=== PATIENT | male | born 1985 | race Caucasian/White ===

== ENCOUNTER 2025-01-23 14:25 | Outpatient (AMB) | payer OTHER, SELFPAY ==
--- NOTE | 2025-01-23 14:27 | MHC.PC.OV ---
Vital Signs 01/23/25 14:34 Height 6 ft 1.43 in Weight 261 lb 6 oz BMI 34.1 BP 128/86 Blood Pressure Location Rt brachial Position Sitting Respiration 16 Pulse 98 Pulse Source Pulse Oximeter Pulse Oximetry (%) 95 Oxygen Delivery Method Room Air Intake Visit Reasons: est care Intake Note: New patient visit Paper Plate Machine Tender Required: No Allergies No Known Allergies Allergy (Verified 01/23/25 14:29) Medication List - Last Reconciled 01/23/25 by Mae Tobin PA-C [Fiber PO] multivitamin 1 tab PO DAILY omeprazole magnesium (Prilosec OTC) 20 mg PO DAILY Tobacco use date assessed: 01/23/25 Dental Screening Dental Screen Date: 01/23/25 Did you have a dental visit in the last 12 months?: Yes Did you have a dental problem in the last 6 months where you did not have access to dental care?: No Was dental information given to patient?: Patient has dentist HPI est care HPI Details Patient is a 39-year-old male who presents today to [facility] care. He has not seen a pcp recently. He states that he does have a past medical history of Suboxone use but discontinued it 5 months ago in his own. States that he tapered it down on his own. GI: He is following with [facility] for ongoing diarrhea x 3 a day x 3 months. No blood in stool. Booked 02/04/25 for colonoscopy. He states that this did start following the discontinuation of Suboxone. Psych: He states he is sleeping poorly. He is waking up throughout the night. This has been going on for 3-4 months. He has tried melatonin, otc sleep aids without improvement. He does snore. Neuro: He does get frequent headaches and blurry vision. He states that the blurry vision is only in the left eye and it has been going on for a couple years and has progressively worsened. He has not yet seen ophthalmology and states that he plans to schedule the appointment. He has been getting posterior headaches for the last couple of months as well. It seems like it is worse in the morning. It is almost every day. 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 1. Little interest or pleasure in doing things: not at all 2. Feeling down, depressed, or hopeless: not at all 3. Trouble falling or staying asleep, or sleeping too much: nearly every day 4. Feeling tired or having little energy: several days 5. Poor appetite or overeating: not at all 6. Feeling bad about yourself - or that you are a failure or have let yourself or your family down: not at all 7. Trouble concentrating on things, such as reading the newspaper or watching television: not at all 8. Moving or speaking so slowly that other people could have noticed. Or the opposite - being so fidgety or restless that you have been moving around a lot more than usual: not at all 9. Thoughts that you would be better off or of hurting yourself in some way: not at all Total score: 4 Source: Developed by Drs. Manny Peter, Delilah Diaz, Truman Song and colleagues, with an educational bryan from [employer]. Thrive Questionnaire I am a: Patient What is your living situation today?: I have a steady place to live Within the past 12 months, did the food you bought not last and you didn't have the money to get more?: Never true Within the past 12 months, did you worry whether your food would run out before you got money to buy more?: Never true Do you have trouble paying for medicines?: No Do you have trouble getting transportation to medical appointments?: No Do you have trouble paying your heating and electricity bill?: No Do you have trouble taking care of your child, family member or friend?: No Do you have trouble with day-to-day activities such as bathing, preparing meals, shopping, managing finances, etc.?: No Are you currently unemployed and looking for a job?: No Are you interested in more education?: No Please select the resources that you would like help with: None Currently or been in a relationship where the following occur: No concerns reported THRIVE Score: 0 AUDIT C Alcohol Use Questionnaire (AUDIT-C) 1. How often do you have a drink containing alcohol?: 2-3 times a week 2. How many drinks containing alcohol do you have on a typical day when you are drinking?: 1 or 2 3. How often do you have six or more drinks on one occasion?: Monthly Total Score: 5 AKIKO-7 AMB Questionnaire AKIKO-7 Feeling nervous, anxious, or on edge: 0 = Not at all Not being able to stop or control worryin = Not at all Worrying too much about different things: 0 = Not at all Trouble relaxin = Several days Being so restless that it is hard to sit still: 0 = Not at all Becoming easily annoyed or irritable: 0 = Not at all Feeling afraid as if something awful might happen: 0 = Not at all Total AKIKO-7 score (0-4 normal; 5-9 mild; 10-14 moderate; 15-21 severe): 1 Source: Developed by Drs. Manny Peter, Delilah Diaz, Truman Song and colleagues, with an educational bryan from [employer]. Physical exam (Primary Care) Vital Signs: Last Vital Signs Pulse 98 01/23/25 14:34 Resp 16 01/23/25 14:34 BP 128/86 01/23/25 14:34 Pulse Ox 95 01/23/25 14:34 Oxygen Delivery Method Room Air 01/23/25 14:34 BMI result Body Mass Index 34.1 Tobacco/Smoking Status: Tobacco use Status Tobacco use date assessed 01/23/25 01/23/25 14:40 Patient Tobacco Use Status Former Tobacco user 01/23/25 14:40 e-Cigarette/Vaping Use Never Used 01/23/25 14:40 PHQ-9: PHQ-9 Score PHQ-9: Total score 4 01/23/25 14:40 Currently or been in a relationship where the following occur: No concerns reported Const Orientation/consciousness: patient oriented x3 HENMT Ears: hearing grossly normal bilaterally Neck Thyroid: Thyroid normal Lymphatic: no lymphadenopathy noted Resp Auscultation: clear to auscultation bilaterally Cardio Rate: regular rate Rhythm: regular rhythm Heart sounds: S1 normal heart sound present and S2 normal heart sound present GI Inspection: Yes normal to inspection Palpation (GI): Soft to palpation and Other GI palpation findings present (nontender, no cva tenderness) Auscultation: normoactive bowel sounds Rectal Exam - Male: Yes deferred Skin General skin exam: no rashes or lesions noted Neuro General: patient oriented x3, gait normal, no focal motor deficits and CN's II-XI intact bilaterally Coding Level of Care Code New Pt Level 3 (56859) Complex EM visit Add On G2211 Diagnoses Insomnia G47.00 Diarrhea R19.7 Daily headache R51.9 Blurry vision, left eye H53.8 Encounter for imaging to screen for eye metal prior to magnetic resonance imaging (MRI) Z Assessment & Plan Assessment & Plan (1) Insomnia: Code(s): G47.00 - Insomnia, unspecified Category: Medical Plan: We will try trazodone. Sleep study ordered. Labs ordered (2) Diarrhea: Code(s): R19.7 - Diarrhea, unspecified Category: Medical Plan: Has colonoscopy scheduled.. Continue with fiber supplement. (3) Daily headache: Code(s): R51.9 - Headache, unspecified Category: Medical Plan: MRI ordered. 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 X-ray ordered. (4) Blurry vision, left eye: Code(s): H53.8 - Other visual disturbances Category: Medical Plan: As above. Advised to follow with Ophthalmology. (5) Encounter for imaging to screen for eye metal prior to magnetic resonance imaging (MRI): Code(s): Z. - Encounter for other specified special examinations Category: Medical Plan: X-ray ordered Orders: Orders Comprehensive Met. Panel Today G47.00 - Insomnia, unspecified, R19.7 - Diarrhea, unspecified, Z00.00 - Encounter for general adult medical examination without abnormal findings Complete Blood Count Auto Diff Today G47.00 - Insomnia, unspecified, R19.7 - Diarrhea, unspecified, Z00.00 - Encounter for general adult medical examination without abnormal findings Lipid Panel Today G47.00 - Insomnia, unspecified, R19.7 - Diarrhea, unspecified, Z00.00 - Encounter for general adult medical examination without abnormal findings Hemoglobin A1c Today G47.00 - Insomnia, unspecified, R19.7 - Diarrhea, unspecified, R73.01 - Impaired fasting glucose, Z00.00 - Encounter for general adult medical examination without abnormal findings XR orbit min 4V Today Z01.89 - Encounter for other specified special examinations RT home sleep study Today R06.81 - Apnea, not elsewhere classified TSH reflex Free T4 Today G47.00 - Insomnia, unspecified, R19.7 - Diarrhea, unspecified, Z00.00 - Encounter for general adult medical examination without abnormal findings UA CC w/rflx Micro + Cult Today G47.00 - Insomnia, unspecified, R19.7 - Diarrhea, unspecified, Z00.00 - Encounter for general adult medical examination without abnormal findings, Z13.220 - Encounter for screening for lipoid disorders MR head/brain wo con Today H53.8 - Other visual disturbances, R51.9 - Headache, unspecified Medications: New trazodone 50 mg PO BEDTIME 30 tabs 5RF
[2025-01-23 14:34] VITALS: BP 128/86; PULSE 98; RESP 16; O2SAT 95; BMI 34.1
== END 2025-01-23 15:04 | disposition home or self-care (01) ==
LOC: HO.HMCFM 14:26
PROVIDERS: PCP Physician Assistant; Visit Provider Physician Assistant
DX: G47.00 Insomnia, unspecified (principal); R19.7 Diarrhea, unspecified; R51.9 Headache, unspecified; H53.8 Other visual disturbances; Z01.89 Encounter for other specified special examinations

== ENCOUNTER → 2025-01-23 14:25 | Outpatient (BNVA) | payer OTHER, SELFPAY | PROVIDERS: PCP Physician Assistant; Visit Provider Physician Assistant | DX: Z13.89 Encounter for screening for other disorder (principal) ==

== ENCOUNTER 2025-01-25 07:47 | Outpatient (REF) | payer OTHER, SELFPAY ==
[2025-01-25 11:10] LABS: MANUAL DIFF FLAG NO
[2025-01-25 11:31] LABS: Basophils Percent Auto 0.4 % (0-2); Eosinophils Absolute Auto 0.2 X10*3/uL (0.0-0.4); Eosinophils Percent Auto 2.2 % (0-4); Hematocrit 46.8 % (42.0-52.0); Hemoglobin 15.6 g/dl (14.0-18.0); Imm Gran Abs Auto 0.03 X10*3/uL (0.00-0.03); Imm Gran Pct Auto 0.3 % (0.0-0.4); Lymphocytes Absolute Auto 2.4 X10*3/uL (1.2-4.9); Lymphocytes Percent Auto 25.6 % (20-40); Mean Corpuscular HGB Conc 33.3 g/dl (31.0-36.0); Mean Corpuscular Hemoglobin 29.1 pg (27.0-33.0); Mean Corpuscular Volume 87.2 fL (80.0-98.0); Mean Platelet Volume 9.1 fL (9.4-12.4); Monocytes Absolute Auto 0.8 X10*3/uL (0.1-1.2); Monocytes Percent Auto 8.5 % (2-11); Neutrophils Absolute Auto 5.8 x10*3/uL (2.0-8.3); Platelet Count 313 X10*3/uL (160-400); Red Blood Count 5.37 X10*6/uL (4.60-5.80); Red Cell Distribution Width 12.9 % (11.0-16.0); White Blood Count 9.3 X10*3/uL (4.8-10.8)
[2025-01-25 11:31] LABS: Estimated Average Glucose 105 mg/dL; Hemoglobin A1c % 5.3 % (<6.0)
[2025-01-25 11:43] LABS: Appearance Urine Clear; Color Urine Yellow; Glucose Urine UA Negative (Negative); Leukocyte Esterase Urine Negative (Negative); Nitrite Urine Negative (Negative); Specific Gravity - Urine >= 1.030 (1.005-1.025); Urine Blood Negative (Negative); Urine Ketones Negative (Negative); Urine Protein Trace mg/dL (Neg-Trace)
[2025-01-25 12:49] LABS: Alanine Aminotransferase 28 U/L (0-40); Albumin Level 4.7 g/dL (3.5-5.0); Alkaline Phosphatase 53 U/L (39-117); Anion Gap 11 (12-20); Aspartate Amino Transferase 22 U/L (5-37); Bilirubin Total 0.3 mg/dL (0.0-1.0); Blood Urea Nitrogen 24 mg/dL (9-16); Calcium 9.4 mg/dL (8.4-10.2); Carbon Dioxide 27 mmol/L (22-29); Chloride 107 mmol/L (96-108); Cholesterol 207 mg/dL (<200); Estimated Glomerular Filt Rate > 60; Glucose Random 99 mg/dL (60-115); HDL Cholesterol 45 mg/dL (>40); LDL Cholesterol Calculated 134 mg/dL (<100); Potassium 3.7 mmol/L (3.3-5.1); Sodium 141 mmol/L (135-145); Total Protein 7.2 g/dL (6.5-8.0); Triglycerides 143 mg/dL (<150)
== END 2025-01-25 07:48 | disposition home or self-care (01) ==
LOC: HO.WFDLDS 07:47
PROVIDERS: Visit Provider Physician Assistant
DX: Z00.00 Encounter for general adult medical examination without abnormal findings (principal); G47.00 Insomnia, unspecified; R19.7 Diarrhea, unspecified; Z13.220 Encounter for screening for lipoid disorders; R73.01 Impaired fasting glucose
CPT/HCPCS: 36415; 80053; 80061; 81003; 83036; 84443; 85025

== ENCOUNTER 2025-02-01 06:53 | Outpatient (REF) | payer OTHER, SELFPAY ==
--- NOTE | ~2025-02-01 | XR_ITS ---
EXAMINATION: XR SCREENING FILM FOR MR HISTORY: PRE MRI, ? METAL IN EYES COMPARISON: There are no prior studies available for comparison. FINDINGS: Three views of the orbits demonstrate no radiopaque foreign body. The visualized paranasal sinuses are clear. XR/XR pre mri screening IMPRESSION: No radiopaque foreign body is identified. Electronically signed by: Manny Otto MD 02/01/2025 07:15 AM EDT RP
--- NOTE | ~2025-02-01 | MR_ITS ---
EXAMINATION: MR BRAIN WITHOUT CONTRAST CLINICAL INFORMATION: Headache, unspecified. Difficulty sleeping. Migraines. Symptoms times several months. 39-year-old male. COMPARISON: None available. TECHNIQUE: MRI of the brain was obtained using routine sequences without contrast. Examination performed on a Siemens 1.5 Marli high-field unit. In addition to standard sequences, a sagittal T2 FLAIR sequences was also obtained. FINDINGS: There is no diffusion restriction. There is no intracranial hemorrhage, acute infarction, mass effect, or edema. Ventricles, sulci, and cisterns are normal in size and configuration for patient age. No shift of midline. No abnormal hemosiderin deposition is identified. There are no significant white matter abnormalities identified. Midline structures appear normally formed. The pituitary gland appears normal. Posterior fossa structures appear normal. Cerebellar tonsils are appropriately located. Major flow voids are preserved within the skull base. The globes and orbital contents demonstrate no abnormalities. Paranasal sinuses are normally pneumatized bilaterally. Nasal septum is midline with a small leftward spur. The mastoids and tympanic cavities are normally pneumatized. Extracranial soft tissues demonstrate no abnormalities. No suspicious bone marrow changes are evident. Atlantoaxial joint is normal. MR/MR head/brain wo con IMPRESSION: 1. No evidence of intracranial hemorrhage, acute infarction, mass effect, or edema. 2. There are no significant white matter abnormalities detected. The examination is essentially normal. Electronically signed by: Isaiah Grey MD 02/01/2025 08:36 AM EDT
== END 2025-02-01 06:54 | disposition home or self-care (01) ==
LOC: HO.MRI 06:53
PROVIDERS: PCP Physician Assistant; Visit Provider Physician Assistant
DX: R51.9 Headache, unspecified (principal); H53.8 Other visual disturbances
CPT/HCPCS: 70551

== ENCOUNTER → 2025-02-01 07:10 | Outpatient (BNV) | payer OTHER, SELFPAY | PROVIDERS: PCP Physician Assistant; Visit Provider Radiology Diagnostic Radiology | DX: G43.009 Migraine without aura, not intractable, without status migrainosus (principal) | CPT/HCPCS: 70551 ==

== ENCOUNTER 2025-05-09 08:20 | Outpatient (AMB) | payer OTHER, SELFPAY ==
--- NOTE | 2025-05-09 08:23 | MHC.PC.OV ---
Vital Signs 05/09/25 08:25 Height 6 ft 1.43 in Weight 251 lb BMI 32.7 BP 132/86 Blood Pressure Location Rt brachial Position Sitting Respiration 14 Pulse 79 Pulse Source Pulse Oximeter Pulse Oximetry (%) 97 Oxygen Delivery Method Room Air Intake Visit Reasons: Follow up stomach issues Intake Note: Follow up. Had colonoscopy at [facility] Manager Of Financial Planning Required: No Allergies No Known Allergies Allergy (Verified 05/09/25 08:24) Medication List - Last Reconciled 05/09/25 by Mae Tobin PA-C [Fiber PO] multivitamin 1 tab PO DAILY omeprazole magnesium (Prilosec OTC) 20 mg PO DAILY trazodone 50 mg PO BEDTIME PRN Tobacco use date assessed: 05/09/25 Dental Screening Dental Screen Date: 01/23/25 HPI Follow up stomach issues HPI Details Patient is a 39-year-old male who presents today to f/u. He states that he does have a past medical history of Suboxone use but discontinued it 5 months ago in his own. States that he tapered it down on his own. Msk: right knee has been painful a bit more consistently x 1 month. He was previously injured at work and following with [facility] who did do surgery on his right leg. He is planning to make a follow up with [facility] but does request ibuprofen 800 mg. States that this is helpful for him. GI: He is following with [facility] for [place] diarrhea and it is has improved with changing fiber supplement. He had a normal-appearing colonoscopy in January of this year, 2024. The diarrhea did start following the discontinuation of Suboxone. It is currently thought to be withdrawal from opiates that should improve. Patient has a follow up arranged with GI in a few months. He does not have any abdominal pain or weight loss with this. Psych: He did miss his sleep study. He is tolerating the trazodone while in finds that taking 2 tablets is more helpful than taking 1. Neuro: He states since our last visit his headaches have improved. He did follow up with Ophthalmology and was told that he needs glasses. He states that his left eye is worse than his right. He has not yet started the new glasses. He also again missed this sleep study. Let his labs were normal. He did have a normal-appearing MRI of the brain. He does not want to see Neurology as he does feel that this has improved. 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 Current occupational exposures/hazards: Yes Cognitive needs: No Hearing needs: No Vision needs: Yes (cataracts) Questionnaire Thrive Questionnaire Date Thrive assessed: 01/23/25 I am a: Patient What is your living situation today?: I have a steady place to live Within the past 12 months, did the food you bought not last and you didn't have the money to get more?: Never true Within the past 12 months, did you worry whether your food would run out before you got money to buy more?: Never true Do you have trouble paying for medicines?: No Do you have trouble getting transportation to medical appointments?: No Do you have trouble paying your heating and electricity bill?: No Do you have trouble taking care of your child, family member or friend?: No Do you have trouble with day-to-day activities such as bathing, preparing meals, shopping, managing finances, etc.?: No Are you currently unemployed and looking for a job?: No Are you interested in more education?: No Please select the resources that you would like help with: None Currently or been in a relationship where the following occur: No concerns reported THRIVE Score: 0 Physical exam (Primary Care) Vital Signs: Last Vital Signs Pulse 79 05/09/25 08:25 Resp 14 05/09/25 08:25 BP 132/86 05/09/25 08:25 Pulse Ox 97 05/09/25 08:25 Oxygen Delivery Method Room Air 05/09/25 08:25 BMI result Body Mass Index 32.7 Tobacco/Smoking Status: Tobacco use Status Tobacco use date assessed 01/23/25 05/09/25 08:27 Patient Tobacco Use Status Former Tobacco user 05/09/25 08:27 e-Cigarette/Vaping Use Never Used 05/09/25 08:27 Thrive Assessment: Date of Thrive Assessment Date Thrive assessed 01/23/25 05/09/25 08:27 Currently or been in a relationship where the following occur: No concerns reported Const Orientation/consciousness: patient oriented x3 HENMT Ears: hearing grossly normal bilaterally Neck Thyroid: Thyroid normal Lymphatic: no lymphadenopathy noted Resp Auscultation: clear to auscultation bilaterally Cardio Rate: regular rate Rhythm: regular rhythm Heart sounds: S1 normal heart sound present and S2 normal heart sound present GI Inspection: Yes normal to inspection Palpation (GI): Soft to palpation and Other GI palpation findings present (nontender, no cva tenderness) Auscultation: normoactive bowel sounds Rectal Exam - Male: Yes deferred Skin General skin exam: no rashes or lesions noted Neuro General: patient oriented x3, gait normal and no focal motor deficits Results Reviewed Results Reviewed: MR/MR head/brain wo con IMPRESSION: 1. No evidence of intracranial hemorrhage, acute infarction, mass effect, or edema. 2. There are no significant white matter abnormalities detected. The examination is essentially normal. Coding Level of Care Code Est Pt Level 4 (49166) Complex EM visit Add On G2211 Diagnoses Insomnia G47.00 Blurry vision, left eye H53.8 Diarrhea R19.7 Daily headache R51.9 Right knee pain M25.561 Pre-hypertension R03.0 Assessment & Plan Assessment & Plan (1) Insomnia: Code(s): G47.00 - Insomnia, unspecified Category: Medical Plan: Increase trazodone to 100 mg Advised to get sleep study (2) Blurry vision, left eye: Code(s): H53.8 - Other visual disturbances Category: Medical Plan: Has seen Ophthalmology and had MRI. Needs glasses. He will try this and let me know how his vision improves or if it does not (3) Diarrhea: Code(s): R19.7 - Diarrhea, unspecified Category: Medical Plan: Improving significantly (4) Daily headache: Code(s): R51.9 - Headache, unspecified Category: Medical Plan: Resolved (5) Right knee pain: Code(s): M25.561 - Pain in right knee Category: Medical Plan: Following with orthopedics. Ibuprofen ordered (6) Pre-hypertension: Code(s): R03.0 - Elevated blood-pressure reading, without diagnosis of hypertension Category: Medical Plan: I have encouraged healthy lifestyle modifications. We will recheck in 6 months. Orders: Orders Lipid Panel Today Z00.00 - Encounter for general adult medical examination without abnormal findings Prostate Specific Antigen Scr Today Z00.00 - Encounter for general adult medical examination without abnormal findings, Z01.89 - Encounter for other specified special examinations TSH reflex Free T4 Today Z00.00 - Encounter for general adult medical examination without abnormal findings Complete Blood Count Auto Diff Today Z00.00 - Encounter for general adult medical examination without abnormal findings Comprehensive Sophia. Panel Fast Today Z00.00 - Encounter for general adult medical examination without abnormal findings Medications: New trazodone 100 mg PO BEDTIME 90 tabs 1RF ibuprofen 800 mg PO Q8H PRN 90 tabs 2RF pain trazodone 100 mg PO BEDTIME 90 tabs 1RF Discontinued trazodone Discontinued Reason: Doctor's Order 50 mg PO BEDTIME PRN
[2025-05-09 08:25] VITALS: BP 132/86; PULSE 79; RESP 14; O2SAT 97; BMI 32.7
== END 2025-05-09 08:55 | disposition home or self-care (01) ==
LOC: HO.HMCFM 08:21
PROVIDERS: PCP Physician Assistant; Visit Provider Physician Assistant
DX: G47.00 Insomnia, unspecified (principal); H53.8 Other visual disturbances; R19.7 Diarrhea, unspecified; R51.9 Headache, unspecified; M25.561 Pain in right knee; R03.0 Elevated blood-pressure reading, without diagnosis of hypertension